=== PATIENT | female | born 1980 | race Two or more races ===

== ENCOUNTER 2016-09-12 22:01 | Emergency (ER) | payer OTHER, SELFPAY ==
--- NOTE | ~2016-09-12 | ER ---
[facility] AGE: 36 Y [address] ROOM: [place] [address] LOCATION: [facility] ADMIT DATE: 09/12/2016 ER/Outpatient Report DISCHARGE DATE: 09/12/2016 FAMILY PHYSICIAN: Hattie De Jesus MD ATTENDING PHYSICIAN: Ann Marie Cavazos Time of Arrival: 2201 hours. Time of Evaluation: 2215 hours. CHIEF COMPLAINT: Right lower quadrant abdominal pain. HISTORY OF PRESENT ILLNESS: A 36-year-old female who presents to the ER with severe right lower quadrant abdominal pain. She states she kind of had some achy abdominal pain 2 or 3 weeks ago and it would come and go and then today for the last 12 hours she has had intense right lower quadrant abdominal pain. It is causing her nausea. She has had no vomiting. No diarrhea. No fever or chills. No troubles with urination. She describes her pain as sharp in nature. She states that she has never had anything like this before. ALLERGIES: ROCEPHIN. MEDICATIONS: Please see medication list in nurse's notes. PAST MEDICAL HISTORY: Negative. PAST SURGERIES: Tubal ligation. SOCIAL HISTORY: Denies. REVIEW OF SYSTEMS: A 10-point review of systems was completed and was negative with the exception of those discussed in the HPI. PHYSICAL EXAMINATION: VITAL SIGNS: Height 5 feet 6 inches, stated; weight 131.8 kilograms, taken; blood pressure is 150/86; pulse 73; respirations 22; temperature 98.6 degrees tympanically; saturations 98% on room air. Jerald Coma Score is 15. GENERAL: Alert, slightly anxious appearing 36-year-old, in moderate distress. PATIENT'S NAME: CLAUDIA LASSITER [facility] AGE: 36 Y [address] ROOM: [place] [address] LOCATION: [facility] ADMIT DATE: 09/12/2016 ER/Outpatient Report DISCHARGE DATE: 09/12/2016 FAMILY PHYSICIAN: Hattie De Jesus MD ATTENDING PHYSICIAN: Ann Marie Cavazos HEENT: Head, normocephalic. Eyes; pupils are reactive to light. She does display moist mucous membranes. LUNGS: Clear to auscultation bilaterally. No wheezes or crackles. Normal respiratory effort. HEART: Regular rate and rhythm. No lifts, thrills, or murmurs. ABDOMEN: Obese. It is tender in the right lower quadrant, she does guard with that. She has good bowel sounds throughout. No masses were palpated. EXTREMITIES: No clubbing, cyanosis, or edema. Has full range of motion of all limbs. LABORATORY DATA AND X-RAYS: CBC; white count is 9.6, hemoglobin 11.6, platelets 258, ANC is 5.1. INR is 1.0. CMS; sodium 144, potassium 3.7, BUN 17, creatinine 0.8, estimated GFR is greater than 60. Urine HCG was negative. UA, micro; white blood cells 0 to 2, red blood cells packed field, epithelial 0 to 2, bacteria rare, no nitrites, leukocytes 25. We did do a CT scan with IV contrast, shows that she has a 3.5 calculus at the UVJ. She has some mild hydronephrosis with that. She has some mild hepatic steatosis. IMPRESSION: Right lower quadrant abdominal pain secondary to 3.5 mm kidney stone. ASSESSMENT AND PLAN: We did start an IV here in the emergency room. We did give her some IV fluids. We did give her morphine for her pain and Zofran for nausea. We did give her some Toradol after her CT scan report came back. The patient is feeling much better. We will dismiss her to home with a prescription for [place] and Zofran to use as directed. She needs to continue to push fluids, monitor her symptoms, we will have her strain her urine, and she should follow up with her primary care physician if she does not improve. The patient understands and agrees with care. CHRISTIANO WAGNER PA-C FOR MD KATHERIN LAMAR/steff /[id number] d: t: 09/20/16 1647, OUTPATIENT REPORT
[2016-09-12 22:20] LABS: BILIRUBIN URINE NEGATIVE (NEGATIVE); BLOOD URINE 250 /UL (NEGATIVE); COLOR URINE AMBER (YELLOW); GLUCOSE URINE NEGATIVE (NEGATIVE); KETONE URINE 5 mg/dL (NEGATIVE); LEUKOCYTES URINE 25 /UL (NEGATIVE); NITRITE URINE NEGATIVE (NEGATIVE); PROTEIN URINE 30 mg/dL (NEGATIVE); TURBIDITY URINE 2+ (CLEAR); UROBILINOGEN URINE 1 mg/dL (NORMAL)
[2016-09-12 22:25] LABS: RBC URINE PACKED FIELD #/HPF (NEGATIVE); WBC URINE 0-2 #/HPF (NEGATIVE)
[2016-09-12 22:26] LABS: BACTERIA URINE RARE (NEGATIVE); EPITHELIAL URINE 0-2 #/HPF (NEGATIVE); HYALINE CAST URINE 0-2 #/LPF (NEGATIVE)
[2016-09-12 22:38] LABS: BASOPHIL % 0.4 %; EOSINOPHIL # 0.2 K/uL (0.0-0.5); EOSINOPHIL % 2.1 %; HEMATOCRIT 35.5 % (33.0-46.0); HEMOGLOBIN 11.6 g/dL (11.0-15.0); IMMATURE GRANULOCYTE % 0.2 %; LYMPHOCYTE # 3.4 K/uL (0.8-4.0); LYMPHOCYTE % 35.2 %; MCH 26.9 pg (27.0-34.0); MCHC 32.7 gm/dL (32.0-36.5); MCV 82.2 fl (83.0-98.0); MONOCYTE # 0.9 K/uL (0.0-1.0); MPV 9.6 fl (9.4-12.4); NEUTROPHIL # (ANC) 5.1 K/uL (1.8-7.8); NEUTROPHIL % 53.1 %; NRBC % 0 /100WBC (0-0.00); PLATELET COUNT 258 K/uL (150-450); RBC 4.32 M/uL (3.50-5.50); RDW-CV 13.7 % (11.9-14.6); WBC 9.6 K/uL (4.0-11.0)
[2016-09-12 22:50] LABS: PROTIME 10.4 SECONDS (9.6-11.1); PTT 26 SECONDS (25-32)
[2016-09-12 22:54] LABS: ALBUMIN 3.4 gm/dL (3.5-5.0); ALK PHOS 109 IU/L (33-138); ALT 27 IU/L (12-78); ANION GAP 14.7 (10.0-19.0); AST 14 IU/L (10-40); BLOOD UREA NITROGEN 17 mg/dL (6-24); CALCIUM 8.4 mg/dL (8.5-10.5); CHLORIDE 109 mMol/L (96-110); CO2 24 mMol/L (22-32); CREATININE 0.8 mg/dL (0.5-1.1); ESTIMATED GFR (MDRD EQUATION) > 60; POTASSIUM 3.7 mMol/L (3.7-5.1); SODIUM 144 mMol/L (135-145); TOTAL BILIRUBIN 0.1 mg/dL (0.0-1.5); TOTAL PROTEIN 7.4 g/dL (6.0-8.4)
== END 2016-09-12 23:59 | disposition disaster alternative care site (69) ==
LOC: GMED 22:01
PROVIDERS: Family Medicine
DX: N13.2 Hydronephrosis with renal and ureteral calculous obstruction (principal); Z98.51 Tubal ligation status; Z88.1 Allergy status to other antibiotic agents
CPT/HCPCS: J1885; J2270; J2405; J7030; Q9967

== ENCOUNTER 2016-09-13 15:39 | Emergency (ER) | payer OTHER, SELFPAY ==
--- NOTE | ~2016-09-13 | ER ---
PATIENT'S NAME: CLAUDIA LASSITER [facility] AGE: 36 Y [address] ROOM: [place] [address] LOCATION: ED ADMIT DATE: 09/13/2016 ER/Outpatient Report DISCHARGE DATE: 09/13/2016 FAMILY PHYSICIAN: Hattie De Jesus MD ATTENDING PHYSICIAN: Bryan Sapp Time of Arrival: 1550. Time of Evaluation: 1550. CHIEF COMPLAINT: Nausea and vomiting. HISTORY OF PRESENT ILLNESS: The patient was seen yesterday here in the ER. Diagnosed with kidney stones. Sent home with Elva and Jayashree. States she has continued to have pain today. Has been more nauseated and has vomited x3. Her pain in the right flank area is a 6/10 at this time. States that she took pain medication at 1400. Last time she vomited was around 1550. She has been urinating without discomfort. Denies having any chest pain or cough. Has not had any abdominal pain. ALLERGIES: ROCEPHIN. MEDICATIONS: None. PAST MEDICAL HISTORY: Kidney stones. PAST SURGERIES: She has had a lithotripsy with renal stent for kidney stones, tubal ligation. COURT MAGISTRATE: Her last menstrual period started September 08, 2016. SOCIAL HISTORY: She denies use of tobacco, drugs, or alcohol. REVIEW OF SYSTEMS: Negative other than those mentioned in the HPI. PHYSICAL EXAMINATION: VITAL SIGNS: She weighed 132 kg. Blood pressure is 121/63, pulse is 72, respirations 20, temperature of 98, O2 saturation was 97% on room air. GENERAL: She is awake, alert, and oriented x4. PATIENT'S NAME: CLAUDIA LASSITER [facility] AGE: 36 Y [address] ROOM: [place], [place] [address] LOCATION: [facility] ADMIT DATE: 09/13/2016 ER/Outpatient Report DISCHARGE DATE: 09/13/2016 FAMILY PHYSICIAN: Hattie De Jesus MD ATTENDING PHYSICIAN: Bryan Sapp SKIN: [place], warm, and dry. RESPIRATIONS: Even and nonlabored. LUNG: Sounds are clear throughout. HEART: Regular rate and rhythm. ABDOMEN: Soft, nondistended. Bowel sounds are present. She is tender in the right flank area. EXTREMITIES: She walked in with a steady even gait. Moves all extremities strongly and equally. EMERGENCY DEPARTMENT COURSE: Saline lock was initiated. Fluids of normal saline were started at a wide- open rate. She was given Zofran 4 mg IV and Toradol 30 mg IV. She was monitored. Vital signs remained stable. She states she was feeling better. IMPRESSION: Nausea and vomiting related to kidney stone. PLAN: Home, rest. Continue the [place] as needed for pain. Zofran as needed for nausea. Clear liquid diet tonight. Gradually increasing to easy to digest type foods. Continue to strain her urine. If symptoms persist or worsen, she is to follow up with her primary provider in the next 1 to 2 days. She is able to return to the ER at any time if needed. She verbalized understanding. RONNIE HUTCHINS APRN FOR MD ELSIA ALANIS/steff /[id number] d: 09/13/16 2244 t: 09/24/16 0627, OUTPATIENT REPORT
== END 2016-09-13 17:04 | disposition disaster alternative care site (69) ==
LOC: GMED 15:39
DX: N20.0 Calculus of kidney (principal); R11.2 Nausea with vomiting, unspecified; Z88.1 Allergy status to other antibiotic agents; Z98.51 Tubal ligation status
CPT/HCPCS: J1885; J2405; J7030

== ENCOUNTER 2016-11-04 05:23 | Emergency (ER) | payer OTHER, SELFPAY ==
--- NOTE | ~2016-11-04 | ER ---
PATIENT'S NAME: CLAUDIA LASSITER [facility] AGE: 36 Y [address] ROOM: [place] [address] LOCATION: ED ADMIT DATE: 11/04/2016 ER/Outpatient Report DISCHARGE DATE: 11/04/2016 FAMILY PHYSICIAN: Hattie De Jesus MD ATTENDING PHYSICIAN: Ann Marie Cavazos CHIEF COMPLAINT: Abdominal pain. HISTORY OF PRESENT ILLNESS: The patient presents this morning for evaluation of right-sided abdominal pain. She has a history of kidney stones, but this does not feel exactly like that. She states that the pain started this morning. It is a sharp pain, and it has been present since 3:30 a.m. She has not really done anything to make this better. She has had some associated nausea and vomiting. This pain is constant. She has had bilateral tubal ligation, of note, and does not think she could be . PAST MEDICAL HISTORY: Documented in the record and reviewed by me. SOCIAL HISTORY: Documented in the record and reviewed by me. MEDICATIONS: Documented in the record and reviewed by me. ALLERGIES: DOCUMENTED IN THE RECORD AND REVIEWED BY ME. REVIEW OF SYSTEMS: All systems are reviewed and negative except as noted in the HPI. PHYSICAL EXAMINATION: VITAL SIGNS: Blood pressure is 150/83, pulse 65, respiratory rate is 20, temperature 97.9, and SpO2 is 95% on room air. Pain is rated at 8/10 upon arrival. GENERAL: Age appropriate female, in no obvious pain or distress. Resting comfortably on the exam table in a left lateral decubitus position, but does appear to be uncomfortable. NEUROLOGIC: The patient is awake and alert, moves all extremities to command. No obvious abnormalities. HEENT: Normal to inspection. No oropharyngeal abnormalities appreciated. NECK: Supple. Trachea is midline. CHEST: Heart is regular rate and rhythm with no murmurs. PATIENT'S NAME: CLAUDIA LASSITER [facility] AGE: 36 Y [address] ROOM: [place] [address] LOCATION: ED ADMIT DATE: 11/04/2016 ER/Outpatient Report DISCHARGE DATE: 11/04/2016 FAMILY PHYSICIAN: Hattei De Jesus MD ATTENDING PHYSICIAN: Ann Marie Cavazos LUNGS: Clear to auscultation in all lung noe. ABDOMEN: Obese, but soft. There is marked tenderness at the right lower quadrant region. It is most prominent 2 inches above the ASIS, just inferior to McBurney's point. Motion of the hip including obturator and psoas signs do not exacerbate the pain. There is no rebound. No other masses. Bowel sounds are present. SPINE: The back is normal to inspection and palpation. EXTREMITIES: Warm and well perfused. No other abnormalities on exam. SKIN: Clean, dry, and intact. LABORATORY DATA AND IMAGING STUDIES: Labs and X-rays: CT scan of the abdomen reveals a mild obstructing sub 5-mm stone at the right UVJ. No evidence of appendicitis. Urinalysis; 100 leukocytes, 250 blood, micro 20-50 WBCs, 50-100 RBCs, full field epithelials, and rare bacteria. CMS without electrolyte, renal, or hepatobiliary abnormalities. Amylase and lipase are within appropriate limits. HCG is below detectable threshold. CBC is without appreciable abnormality. IMPRESSION: Right-sided ureterolithiasis. EMERGENCY DEPARTMENT COURSE: The patient was seen and evaluated as above. She was initially evaluated by Dr. Cavazos. The patient receives Zofran, fentanyl, and Toradol. This made her symptoms improve vastly down to a 1 or a 2/10. She had no further nausea or vomiting. CT is diagnostic of mildly obstructing right UVJ stone. The appendix was reported to be normal on visualization by Radiology. I believe this is most consistent with her current presentation. She was given hydrocodone and Flomax. Instructions to strain stone and follow up with PCP as needed. MD HÉCTOR ALANIS/steff /[id number] d: 11/04/16 1550 t: 11/13/163, OUTPATIENT REPORT
--- NOTE | ~2016-11-04 | ER ---
PATIENT'S NAME: CLAUDIA LASSITER [facility] AGE: 36 Y [address] ROOM: [place] [address] LOCATION: [facility] ADMIT DATE: 11/04/2016 ER/Outpatient Report DISCHARGE DATE: 11/04/2016 FAMILY PHYSICIAN: Hattie De Jesus MD ATTENDING PHYSICIAN: Ann Marie Cratf Time of Arrival: 0523 hours. Time Seen: 0525 hours. IDENTIFICATION: A 36-year-old female. CHIEF COMPLAINT: Right lower abdominal pain. HISTORY OF PRESENT ILLNESS: The patient is a 36-year-old female who at 3:30 a.m. woke up with right lower abdominal pain radiating to her right flank and also down her right leg. She has had nausea and vomiting x1. No dysuria. No increased frequency of urination. The patient does have a history of kidney stones and says it feels similar to this. ALLERGIES: ROCEPHIN CAUSES HIVES. CURRENT MEDICATIONS: Hydrocodone p.r.n., she did take one prior to arrival. MEDICAL PROBLEMS: Kidney stones. SURGERIES: Tubal ligation. Lithotripsy 10 years ago. SOCIAL HISTORY: The patient lives here in [place]. Works at [employer]. Tobacco use, denies. Alcohol use, denies. Drug use, denies. REVIEW OF SYSTEMS: All systems are reviewed and negative other than what is noted in the HPI. Last menstrual period was 1 month ago. FAMILY HISTORY: No pertinent family history identified. PATIENT'S NAME: CLAUDIA LASSITER [facility] AGE: 36 Y [address] ROOM: [place] [address] LOCATION: [facility] ADMIT DATE: 11/04/2016 ER/Outpatient Report DISCHARGE DATE: 11/04/2016 FAMILY PHYSICIAN: Hattie De Jesus MD ATTENDING PHYSICIAN: Ann Marie Craft PHYSICAL EXAMINATION: VITAL SIGNS: Height 5 feet 6 inches, weight 130 kg. Blood pressure 180/85, pulse 65, respirations 20, temperature 97.9, and saturations 95% on room air. GENERAL: A 36-year-old female, in in moderate distress, 8/10 pain. HEENT: Unremarkable. LUNGS: Clear to auscultation. HEART: Regular rate and rhythm. ABDOMEN: Bowel sounds present. Soft, nondistended, tender to palpation in the right lower abdomen. No rebound or guarding. No CVA tenderness. SKIN: [place], warm, and dry. No lesions or rashes noted. NEURO: The patient is alert and oriented x4. Cranial nerves 2 through 12 grossly intact. Motor strength 5/5 throughout. Sensation is intact to light touch. No lower extremity edema. EMERGENCY DEPARTMENT COURSE: An IV was initiated. Toradol and Zofran were ordered for pain control as well as fentanyl. Labs were ordered. It is shift change and Dr. Sapp will assume care. ANN MARIE CRAFT MD CAR/modl /[id number] d: 11/05/161 t: 11/05/16 0404, OUTPATIENT REPORT
[2016-11-04 06:07] LABS: BASOPHIL % 0.6 %; EOSINOPHIL # 0.1 K/uL (0.0-0.5); EOSINOPHIL % 1.2 %; HEMATOCRIT 36.7 % (33.0-46.0); HEMOGLOBIN 11.8 g/dL (11.0-15.0); IMMATURE GRANULOCYTE % 0.4 %; LYMPHOCYTE # 1.9 K/uL (0.8-4.0); LYMPHOCYTE % 26.7 %; MCH 26.8 pg (27.0-34.0); MCHC 32.2 gm/dL (32.0-36.5); MCV 83.2 fl (83.0-98.0); MONOCYTE # 0.4 K/uL (0.0-1.0); MONOCYTE % 6.1 %; MPV 9.6 fl (9.4-12.4); NEUTROPHIL # (ANC) 4.7 K/uL (1.8-7.8); NRBC % 0 /100WBC (0-0.00); PLATELET COUNT 246 K/uL (150-450); RBC 4.41 M/uL (3.50-5.50); RDW-CV 13.5 % (11.9-14.6); WBC 7.2 K/uL (4.0-11.0)
[2016-11-04 06:27] LABS: ALBUMIN 3.4 gm/dL (3.5-5.0); ALK PHOS 117 IU/L (33-138); ALT 37 IU/L (12-78); ANION GAP 13.9 (10.0-19.0); AST 15 IU/L (10-40); BLOOD UREA NITROGEN 13 mg/dL (6-24); CALCIUM 8.5 mg/dL (8.5-10.5); CHLORIDE 110 mMol/L (96-110); CO2 24 mMol/L (22-32); CREATININE 0.9 mg/dL (0.5-1.1); ESTIMATED GFR (MDRD EQUATION) > 60; POTASSIUM 3.9 mMol/L (3.7-5.1); SODIUM 144 mMol/L (135-145); TOTAL PROTEIN 7.6 g/dL (6.0-8.4)
[2016-11-04 06:31] LABS: TOTAL BILIRUBIN 0.3 mg/dL (0.0-1.5)
[2016-11-04 06:32] LABS: BILIRUBIN URINE NEGATIVE (NEGATIVE); BLOOD URINE 250 /UL (NEGATIVE); COLOR URINE YELLOW (YELLOW); GLUCOSE URINE NEGATIVE (NEGATIVE); KETONE URINE NEGATIVE (NEGATIVE); LEUKOCYTES URINE 100 /UL (NEGATIVE); NITRITE URINE NEGATIVE (NEGATIVE); PROTEIN URINE 30 mg/dL (NEGATIVE); TURBIDITY URINE CLEAR (CLEAR); UROBILINOGEN URINE 1 mg/dL (NORMAL)
[2016-11-04 06:39] LABS: AMORPHOUS URINE 1+ (NEGATIVE); BACTERIA URINE RARE (NEGATIVE); EPITHELIAL URINE FULL FIELD #/HPF (NEGATIVE); MUCUS URINE 2+ (NEGATIVE); RBC URINE 50-100 #/HPF (NEGATIVE); WBC URINE 20-50 #/HPF (NEGATIVE)
== END 2016-11-04 07:47 | disposition disaster alternative care site (69) ==
LOC: GMED 05:23
PROVIDERS: Family Medicine
DX: N13.2 Hydronephrosis with renal and ureteral calculous obstruction (principal); Z98.51 Tubal ligation status; Z88.1 Allergy status to other antibiotic agents; Z87.442 Personal history of urinary calculi
CPT/HCPCS: J1885; J2405; J3010